=== PATIENT | female | born 1935 | race Caucasian/White ===

== ENCOUNTER 2016-12-28 14:25 | Outpatient (CLI) | payer MEDICARE, OTHER ==
[2016-12-28 13:41] LABS: BASOPHILS # (AUTO) 0.1 10^3/uL (0.0-0.1); BASOPHILS % (AUTO) 1.2 %; EOSINOPHILS # (AUTO) 0.7 10^3/uL (0.0-0.7); EOSINOPHILS % (AUTO) 11.5 %; HCT - HEMATOCRIT 40.5 % (37.0-47.0); HGB - HEMOGLOBIN 13.6 g/dL (12.0-16.0); LYMPHOCYTES # (AUTO) 2.1 10^3/uL (1.5-3.5); LYMPHOCYTES % (AUTO) 34.5 %; MEAN CORPUSCULAR HEMOGLOBIN 32.4 pg (27.0-31.0); MEAN CORPUSCULAR HGB CONC 33.7 g/dL (32.0-36.0); MEAN CORPUSCULAR VOLUME 96.3 fL (81.0-99.0); MEAN PLATELET VOLUME 9.9 fL (7.9-10.8); MONOCYTES # (AUTO) 0.5 10^3/uL (0.0-1.0); MONOCYTES % (AUTO) 8.5 %; NEUTROPHILS # (AUTO) 2.7 10^3/uL (1.5-6.6); NEUTROPHILS % (AUTO) 44.3 %; RED CELL DISTRIBUTION WIDTH 13.3 % (12.0-15.0)
[2016-12-28 14:09] LABS: ALBUMIN/GLOBULIN RATIO 1.3 (1.0-2.2); BILIRUBIN,TOTAL 0.4 mg/dL (0.2-1.0); BUN - BLOOD UREA NITROGEN 11 mg/dL (6-20); CARBON DIOXIDE - CO2 26 mmol/L (21-32); CHLORIDE 104 mmol/L (101-111); CHOL/HDL RATIO 4.1 (<4.4); CHOLESTEROL 222 mg/dL; CREATININE 1.1 mg/dL (0.4-1.0); GFR - MDRD 47 (>89); GLUCOSE 85 mg/dL (70-100); HDL CHOLESTEROL 54 mg/dL; LDL/HDL RATIO 2.5 (<4.4); POTASSIUM 3.7 mmol/L (3.5-5.0); SODIUM 139 mmol/L (135-145); TOTAL PROTEIN 6.7 g/dL (6.7-8.2); TRIGLYCERIDES 168 mg/dL; VLDL CHOLESTEROL 34 mg/dL
== END 2016-12-28 14:26 | disposition home or self-care (01) ==
LOC: LAB.R 14:25
PROVIDERS: ATTEND Internal Medicine
DX: E04.1 Nontoxic single thyroid nodule (principal); E78.5 Hyperlipidemia, unspecified; K21.9 Gastro-esophageal reflux disease without esophagitis; M19.90 Unspecified osteoarthritis, unspecified site; Z79.899 Other long term (current) drug therapy
CPT/HCPCS: 80053; 80061; 84443; 85025

== ENCOUNTER 2017-01-03 12:59 | Outpatient (CLI) | payer MEDICARE, OTHER ==
--- NOTE | 2017-01-04 12:35 | DEXA Report ---
DEXA SCAN: 01/03/2017 INDICATION: Asymptomatic menopausal state. TECHNIQUE: Dual energy x-ray absorptiometry (DXA) was performed on a Hydra Dx system. Regions measured are the AP spine, femoral neck, and, if needed, forearm. COMPARISON: None. In accordance with the International Society for Clinical Densitometry (ISCD) guidelines, data from previous exams may be reanalyzed using current recommendations and techniques. This is done to allow a more accurate basis for comparison with the current study. FINDINGS Data for the lumbar spine is as follows: REGION BMD (g/cm/cm) T-SCORE Z-SCORE L1 1.031 -0.8 0.8 L2 1.178 -0.2 1.5 L3 1.112 -0.7 0.9 L4 1.159 -0.3 1.3 TOTAL 1.121 -0.5 1.2 NOTE: All evaluable vertebrae are used for classification. Data for the hip is as follows: REGION BMD (g/cm/cm) T-SCORE Z-SCORE Neck 0.646 -2.8 -0.7 TOTAL 0.796 -1.7 0.3 NOTE: The femoral neck or total proximal femur, whichever is lowest, is used for classification. IMPRESSION: THE WHO CLASSIFICATION BASED ON THE INTERNATIONAL REFERENCE STANDARD IS OSTEOPOROSIS. FRACTURE RISK IS HIGH. RECOMMENDATION: Patients with diagnosis of osteoporosis or osteopenia should have regular bone mineral density assessment. For those eligible for Medicare, routine testing is allowed once every 2 years. Testing frequency can be increased for patients who have rapidly progressing disease or for those who are receiving medical therapy to restore bone mass. COMMENT: World Health Organization (WHO) definitions for osteoporosis and osteopenia: NORMAL BMD: T-score at -1.0 or higher, fracture risk is low. OSTEOPENIA BMD: T-score between -1.0 and -2.5, fracture risk is increased. OSTEOPOROSIS BMD: T-score at -2.5 or lower, fracture risk high. National Osteoporosis Foundation recommends: 1. Obtain adequate dietary calcium (at least 1200 mg per day) and vitamin D (400 -800 international units per day). 2. Participate, as appropriate, in regular weightbearing and muscle- strengthening exercise. 3. Avoid tobacco use and reduce alcohol and caffeine intake. 4. For more detailed information see the website at www.NOF.org. MTDD
== END 2017-01-03 13:00 | disposition home or self-care (01) ==
LOC: DI 12:59
PROVIDERS: ATTEND Internal Medicine
DX: M81.0 Age-related osteoporosis without current pathological fracture (principal)
CPT/HCPCS: 77080

== ENCOUNTER 2017-01-05 08:43 | Outpatient (CLI) | payer MEDICARE, OTHER ==
--- NOTE | 2017-01-08 16:25 | Mammography Report ---
DIGITAL SCREENING MAMMOGRAM: 01/05/2017 CLINICAL INDICATION: An 81-year-old for screening. COMPARISON: 12/2014, 11/2013, 07/2010, 07/2009 TECHNIQUE: Routine CC and MLO projections were obtained of the breasts. FINDINGS: The breasts again demonstrate scattered fibroglandular densities bilaterally. Coarse and punctate, typically benign calcifications are present. No suspicious masses, clustered microcalcific ations, or regions of architectural distortion are identified. IMPRESSION: BENIGN FINDINGS. RECOMMENDATION: Routine annual screening unless otherwise clinically indicated. BIRADS CATEGORY 2 - BENIGN FINDINGS. STANDARD QUALIFYING STATEMENTS 1. This examination was reviewed with the aid of Computer-Aided Detection (CAD). 2. A negative or benign imaging report should not delay biopsy if clinically suspicious findings are present. Consider surgical consultation if warranted. More than 5% of cancers are not identified by i maging. 3. Dense breasts may obscure an underlying neoplasm. JOB #: [id number] EXT JOB #:[id number]
== END 2017-01-05 08:44 | disposition home or self-care (01) ==
LOC: DI 08:43
PROVIDERS: ATTEND Internal Medicine
DX: Z12.31 Encounter for screening mammogram for malignant neoplasm of breast (principal)
CPT/HCPCS: 77067

== ENCOUNTER 2017-01-29 09:44 | Outpatient (CLI) | payer MEDICARE, OTHER | END 2017-01-29 09:45 | disposition home or self-care (01) | LOC: LAB.R 09:44 | PROVIDERS: ATTEND Internal Medicine | DX: M81.0 Age-related osteoporosis without current pathological fracture (principal) | CPT/HCPCS: 82306 ==

== ENCOUNTER 2017-11-05 14:04 | Outpatient (CLI) | payer MEDICARE, OTHER | END 2017-11-05 14:05 | disposition home or self-care (01) | LOC: LAB 14:04 | PROVIDERS: ATTEND Internal Medicine | DX: R06.00 Dyspnea, unspecified (principal); R06.01 Orthopnea; Z79.899 Other long term (current) drug therapy | CPT/HCPCS: 36415; 85379 ==

== ENCOUNTER 2018-02-15 08:00 | Outpatient (CLI) | payer MEDICARE, OTHER ==
[2018-02-15 13:31] LABS: BASOPHILS # (AUTO) 0.1 10^3/uL (0.0-0.1); BASOPHILS % (AUTO) 2.4 %; EOSINOPHILS # (AUTO) 0.5 10^3/uL (0.0-0.7); EOSINOPHILS % (AUTO) 9.9 %; LYMPHOCYTES # (AUTO) 1.8 10^3/uL (1.5-3.5); LYMPHOCYTES % (AUTO) 33.5 %; MEAN CORPUSCULAR HEMOGLOBIN 33.2 pg (27.0-31.0); MEAN CORPUSCULAR HGB CONC 33.9 g/dL (32.0-36.0); MEAN CORPUSCULAR VOLUME 97.7 fL (81.0-99.0); MEAN PLATELET VOLUME 9.6 fL (7.9-10.8); MONOCYTES # (AUTO) 0.4 10^3/uL (0.0-1.0); NEUTROPHILS # (AUTO) 2.4 10^3/uL (1.5-6.6); NEUTROPHILS % (AUTO) 46.2 %; PLT - PLATELET COUNT 229 10^3/uL (130-450); RED BLOOD COUNT 4.22 10^6/uL (4.20-5.40); RED CELL DISTRIBUTION WIDTH 13.1 % (12.0-15.0); WHITE BLOOD COUNT 5.3 x10^3/uL (4.8-10.8)
[2018-02-15 13:45] LABS: ALBUMIN 3.9 g/dL (3.2-5.5); ALBUMIN/GLOBULIN RATIO 1.4 (1.0-2.2); BILIRUBIN,TOTAL 0.7 mg/dL (0.2-1.0); CREATININE 0.9 mg/dL (0.4-1.0); TOTAL PROTEIN 6.7 g/dL (6.7-8.2)
== END 2018-02-15 23:59 ==
LOC: LAB.R 08:00
PROVIDERS: ATTEND Internal Medicine
DX: K22.70 Barrett's esophagus without dysplasia (principal); E04.1 Nontoxic single thyroid nodule; E78.5 Hyperlipidemia, unspecified; M19.90 Unspecified osteoarthritis, unspecified site
CPT/HCPCS: 80053; 84443; 85025

== ENCOUNTER 2018-07-16 13:52 | Outpatient (CLI) | payer MEDICARE, OTHER ==
[2018-07-16 14:02] LABS: BASOPHILS # (AUTO) 0.1 10^3/uL (0.0-0.1); BASOPHILS % (AUTO) 1.6 %; EOSINOPHILS # (AUTO) 0.6 10^3/uL (0.0-0.7); EOSINOPHILS % (AUTO) 8.3 %; HGB - HEMOGLOBIN 13.3 g/dL (12.0-16.0); LYMPHOCYTES # (AUTO) 2.3 10^3/uL (1.5-3.5); LYMPHOCYTES % (AUTO) 33.6 %; MEAN CORPUSCULAR HEMOGLOBIN 32.4 pg (27.0-31.0); MEAN CORPUSCULAR HGB CONC 33.4 g/dL (32.0-36.0); MEAN CORPUSCULAR VOLUME 97.2 fL (81.0-99.0); MEAN PLATELET VOLUME 8.2 fL (7.9-10.8); MONOCYTES # (AUTO) 0.5 10^3/uL (0.0-1.0); MONOCYTES % (AUTO) 7.7 %; NEUTROPHILS # (AUTO) 3.4 10^3/uL (1.5-6.6); NEUTROPHILS % (AUTO) 48.8 %; PLT - PLATELET COUNT 199 10^3/uL (130-450); RED BLOOD COUNT 4.09 10^6/uL (4.20-5.40); RED CELL DISTRIBUTION WIDTH 13.4 % (12.0-15.0); WHITE BLOOD COUNT 6.9 x10^3/uL (4.8-10.8)
== END 2018-07-16 13:53 | disposition home or self-care (01) ==
LOC: LAB 13:52
PROVIDERS: ATTEND Nurse Practitioner
DX: R23.8 Other skin changes (principal); E04.1 Nontoxic single thyroid nodule
CPT/HCPCS: 36415; 84443; 85025

== ENCOUNTER 2020-01-14 09:00 | Outpatient (CLI) | payer MEDICARE, OTHER | END 2020-01-14 09:01 | disposition home or self-care (01) | LOC: COV 09:00 | PROVIDERS: ATTEND Family Medicine | DX: Z20.828 Contact with and (suspected) exposure to other viral communicable diseases (principal) ==

== ENCOUNTER 2020-04-02 13:53 | Outpatient (CLI) | payer OTHER, MEDICARE ==
--- NOTE | 2020-04-02 14:58 | XRAY Report ---
PROCEDURE: Chest 2 View X-Ray INDICATIONS: CHRONIC COUGH TECHNIQUE: 2 view(s) of the chest. COMPARISON: Chest x-ray 02/14/2016 FINDINGS: Surgical changes and devices: None. Lungs and pleura: No pleural effusions or pneumothorax. Lungs are clear. Mediastinum: Mediastinal contours are normal. Heart size is normal. Bones and chest wall: No suspicious bony abnormalities. Soft tissues appear unremarkable. IMPRESSION: No acute pulmonary process. Reviewed by: Vani Motta MD on 04/02/2020 2:57 PM PST Approved by: Vani Motta MD on 04/02/2020 2:57 PM [facility] Station ID: [id number]
== END 2020-04-02 13:54 | disposition home or self-care (01) ==
LOC: DI.N 13:53
PROVIDERS: ATTEND Physician Assistant
DX: R05 Cough (principal); R09.89 Other specified symptoms and signs involving the circulatory and respiratory systems; R06.2 Wheezing

== ENCOUNTER 2020-11-23 16:28 | Outpatient (CLI) | payer MEDICARE, OTHER ==
--- NOTE | 2020-11-23 17:24 | XRAY Report ---
PROCEDURE: Chest 2 View X-Ray INDICATIONS: COUGH TECHNIQUE: 2 view(s) of the chest. COMPARISON: None. FINDINGS: Surgical changes and devices: None. Lungs and pleura: No pleural effusions or pneumothorax. Lungs are clear. Mediastinum: Mediastinal contours are normal. Heart size is enlarged. Lucency is noted in the retro cardiac region suggestive of hiatal hernia. Bones and chest wall: No suspicious bony abnormalities. Soft tissues appear unremarkable. IMPRESSION: No acute pulmonary process. Reviewed by: Vani Motta MD on 11/23/2020 5:23 PM PDT Approved by: Vani Motta MD on 11/23/2020 5:23 PM PDT Station ID: [id number]
== END 2020-11-23 16:29 | disposition home or self-care (01) ==
LOC: DI.N 16:28
PROVIDERS: ATTEND Family Medicine
DX: R05 Cough (principal); R06.2 Wheezing

== ENCOUNTER 2021-03-02 11:20 | Emergency (ER) | payer MEDICARE ==
--- NOTE | 2021-03-02 12:20 | XRAY Report ---
PROCEDURE: Chest 1 View X-Ray INDICATIONS: Chest Pain TECHNIQUE: One view of the chest was acquired. COMPARISON: 11/23/2020 FINDINGS: Surgical changes and devices: None. Lungs and pleura: No pleural effusions or pneumothorax. Lungs are clear. Mediastinum: Mediastinal contours appear normal. Heart size is normal. Bones and chest wall: No suspicious bony lesions. Overlying soft tissues appear unremarkable. IMPRESSION: No acute cardiopulmonary pathology. Reviewed by: Paolo Jarquin MD on 03/02/2021 12:19 PM PST Approved by: Paolo Jarquin MD on 03/02/2021 12:19 PM [facility] Station ID: [id number]
[2021-03-02 12:23] LABS: BASOPHILS # (AUTO) 0.1 10^3/uL (0.0-0.1); BASOPHILS % (AUTO) 1.8 %; EOSINOPHILS # (AUTO) 0.5 10^3/uL (0.0-0.7); EOSINOPHILS % (AUTO) 7.9 %; HCT - HEMATOCRIT 40.4 % (37.0-47.0); HGB - HEMOGLOBIN 13.3 g/dL (12.0-16.0); LYMPHOCYTES % (AUTO) 34.6 %; MEAN CORPUSCULAR HEMOGLOBIN 32.2 pg (27.0-31.0); MEAN CORPUSCULAR HGB CONC 32.9 g/dL (32.0-36.0); MEAN CORPUSCULAR VOLUME 97.8 fL (81.0-99.0); MEAN PLATELET VOLUME 9.9 fL (7.9-10.8); MONOCYTES # (AUTO) 0.5 10^3/uL (0.0-1.0); MONOCYTES % (AUTO) 9.1 %; NEUTROPHILS # (AUTO) 2.6 10^3/uL (1.5-6.6); NEUTROPHILS % (AUTO) 46.2 %; PLT - PLATELET COUNT 229 10^3/uL (130-450); RED BLOOD COUNT 4.13 10^6/uL (4.20-5.40); RED CELL DISTRIBUTION WIDTH 13.2 % (12.0-15.0); WHITE BLOOD COUNT 5.7 x10^3/uL (4.8-10.8)
[2021-03-02 12:39] LABS: ALBUMIN 3.9 g/dL (3.2-5.5); ALBUMIN/GLOBULIN RATIO 1.2 (1.0-2.2); BILIRUBIN,TOTAL 0.7 mg/dL (0.2-1.0); CREATININE 1.2 mg/dL (0.4-1.0); POTASSIUM 3.7 mmol/L (3.5-5.0); TOTAL PROTEIN 7.1 g/dL (6.7-8.2)
--- NOTE | 2021-03-02 14:13 | ED Physician Documentation ---
PD HPI CHEST PAIN - Stated complaint Stated Complaint: CHEST PX - Chief complaint Chief Complaint: Cardiac - History obtained from History obtained from: Patient - Additional information Additional information: Is a vishal 85-year-old woman without history of heart disease who for the last week has had on and off painful palpitations in the left anterior chest. There does not seem to be any pattern to it. 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 She denies shortness of breath. She does have tremors and that was worse than normal this morning. Review of Systems Constitutional: denies: Fever, Chills Nose: denies: Rhinorrhea / runny nose, Congestion Cardiac: reports: Chest pain / pressure, Palpitations. denies: Pedal edema, Calf pain Respiratory: denies: Dyspnea, Cough, Hemoptysis, Wheezing PD PAST MEDICAL HISTORY - Past Medical History Past Medical History: Yes Cardiovascular: High cholesterol GI: GERD, Colon polyps Musculoskeletal: Osteoarthritis - Past Surgical History General: Cholecystectomy, Appendectomy, Colonoscopy HEENT: Cataracts, Tonsil/Adenoidectomy - Present Medications Home Medications: Ambulatory Orders Medication Instructions Recorded Confirmed Omeprazole [PriLOSEC] 20 mg PO DAILY 12/13/12 03/10/19 Biotin 10,000 mcg PO BID 03/10/19 03/10/19 D3/Folic Acid/Collagen,Hydroly 600 mg PO BID 03/10/19 03/10/19 [Cyfolex Capsule] Loratadine [Claritin] 10 mg PO DAILY 03/10/19 03/10/19 Potassium Gluconate 99 mg PO DAILY 03/10/19 03/10/19 Propranolol [Inderal] 10 mg PO PRN PRN 03/10/19 03/10/19 - Allergies Allergies/Adverse Reactions: Allergies Allergy/AdvReac Type Severity Reaction Status Date / Time acetaminophen [From Percocet] Allergy Nausea Verified 03/02/21 11:37 oxycodone HCl * Allergy Nausea Verified 03/02/21 11:37 [From Percocet] - Social History Does the pt smoke?: No Smoking Status: Never smoker - POLST Patient has POLST: No PD ED PE NORMAL - Vitals Vital signs reviewed: Yes - General General: Alert and oriented X 3, No acute distress - HEENT HEENT: PERRL, EOMI - Neck Neck: Supple, no meningeal sign, No bony TTP - Cardiac Cardiac: RRR, No murmur - Respiratory Respiratory: No respiratory distress, Clear bilaterally - Abdomen Abdomen: Non tender - Extremities Extremities: No edema, No calf tenderness / cord - Neuro Neuro: Alert and oriented X 3, Normal speech - Psych Psych: Normal mood, Normal affect Results - Vitals Vitals: Vital Signs - 24 hr 03/02/21 03/02/21 03/02/21 11:37 13:40 15:21 Temperature 36.7 C 35.9 C L Heart Rate 81 77 68 Respiratory 18 19 20 Rate Blood Pressure 121/91 H 153/84 H 165/90 H O2 Saturation 100 100 97 Oxygen O2 Source [] Room air O2 Source Room air - EKG (time done) 1132 Rate: Rate (enter#) (79) Rhythm: NSR (w freq pvcs) [facility]: Normal Intervals: Normal FL QRS: Normal Ischemia: Normal ST segments - Labs Labs: Laboratory Tests 03/02/21 03/02/21 03/02/21 12:19 12:19 12:19 WBC 5.7 RBC 4.13 L Hgb 13.3 Hct 40.4 MCV 97.8 MCH 32.2 H MCHC 32.9 RDW 13.2 Plt Count 229 MPV 9.9 Neut # (Auto) 2.6 Lymph # (Auto) 2.0 [place] # (Auto) 0.5 Eos # (Auto) 0.5 Baso # (Auto) 0.1 Absolute Nucleated RBC 0.00 Nucleated RBC % 0.0 Sodium 141 Potassium 3.7 Chloride 105 Carbon Dioxide 26 Anion Gap 10.0 BUN 14 Creatinine 1.2 H Estimated GFR (MDRD) 42 L Glucose 104 H Calcium 9.0 Total Bilirubin 0.7 AST 18 ALT 12 Alkaline Phosphatase 62 Troponin I High Sens 5.3 Total Protein 7.1 Albumin 3.9 Globulin 3.2 Albumin/Globulin Ratio 1.2 Lipase 49 Procedures - Splint (location) Right index finger Splint applied by: Tech Type of splint: Metal foam finger splint Other: Patient tolerated well, No complications, Neurovascular intact PD MEDICAL DECISION MAKING - ED course ED course: This is a vishal 85-year-old woman with painful palpitations, nonexertional. Both on EKG and on the monitor here she has having occasional symptomatic PVCs which match her pain that she is seeking care for today. There is no evidence of active ischemic heart disease. She is advised to increase her propranolol. Departure - Departure Disposition: 01 Home, Self Care Clinical Impression: PVCs (premature ventricular contractions) Condition: Good Record reviewed to determine appropriate education?: Yes Instructions: ED Palpitations Comments: While you are having this issue, as discussed, you can increase your propranolol to 2-3 times a day from the single time a day that you are taking it. Return for new or worsening symptoms. Follow-up with your primary care physician, next available appointment. Discharge Date/Time: 03/02/21 15:29
[2021-03-02 15:22] VITALS: BP 165/90
== END 2021-03-02 15:29 | disposition home or self-care (01) ==
LOC: ED 11:20
DX: I49.3 Ventricular premature depolarization (principal)
CPT/HCPCS: 36415; 80053; 83690; 84484; 85025; 93005; 99283; 99284

== ENCOUNTER 2021-05-02 08:52 | Outpatient (CLI) | payer MEDICARE ==
--- NOTE | 2021-05-02 17:32 | XRAY Report ---
PROCEDURE: Clavicle RT INDICATIONS: EXOSTOSIS A R SC JOINT TECHNIQUE: 2 views of the clavicle were acquired. COMPARISON: None. FINDINGS: Bones: No fractures or dislocations. No suspicious bony lesions. There is severe right acromioclav icular degenerative narrowing. Small osteophyte is present. Humeral head is high riding. Soft tissues: No suspicious soft tissue calcifications. IMPRESSION: Acromioclavicular degenerative change including osteophyte. High riding humeral head which can be seen with rotator cuff pathology. Reviewed by: Vani Motta MD on 05/02/2021 4:39 PM PST Approved by: Vani Motta MD on 05/02/2021 4:39 PM PST Station ID: [id number]
== END 2021-05-02 08:53 | disposition home or self-care (01) ==
LOC: DI.N 08:52
PROVIDERS: ATTEND Internal Medicine
DX: M19.011 Primary osteoarthritis, right shoulder (principal); R93.6 Abnormal findings on diagnostic imaging of limbs

== ENCOUNTER 2023-02-22 10:36 | Outpatient (CLI) | payer MEDICARE ==
--- NOTE | 2023-02-22 13:27 | XRAY Report ---
PROCEDURE: Shoulder 3 View RT INDICATIONS: RIGHT SHOULDER PAIN TECHNIQUE: 3 views of the shoulder were acquired. COMPARISON: None. FINDINGS: Bones: No fractures or dislocations. No suspicious bony lesions. Visualized ribs appear intact. Large inferior osteophyte off the humeral head resulting in severe inferior aspect of glenohumeral lewis int joint space loss. AC joint hypertrophy with mild downward going component. Soft tissues: No susp icious soft tissue calcifications. The visualized lungs are within normal limits. IMPRESSION: Degenerative arthritis of the glenohumeral joint with large inferior osteophyte resulting in focally severe joint space loss. Reviewed by: Jamie Velez MD on 02/22/2023 1:25 PM PST Approved by: Jamie Velez MD on 02/22/2023 1:25 PM PST Station ID: [id number]
== END 2023-02-22 10:37 | disposition home or self-care (01) ==
LOC: DI.N 10:36
PROVIDERS: ATTEND Internal Medicine
DX: M19.011 Primary osteoarthritis, right shoulder (principal)